=== PATIENT | female | born 1985 | race Caucasian/White ===

== ENCOUNTER 2016-05-07 10:05 | Emergency (ER) | payer MEDICAID ==
[~2016-05-07] VITALS: Ht 152.4 cm; Wt 90.9 kg
[~2016-05-07 10:05] MED LIST: ADDERALL10 MG PO; ALBUTEROL0.83 MG/ML IH; AMOXICILLIN875 MG PO; CELEXA 20MG20 MG/TAB PO; CIPRO 500MG TA500 MG PO; DEPO PROVER150 MG/ML IM; DEPO-ESTRADIO5 MG/ML IM; DEPO-PROVER150 MG/M1 IM; FLEXERIL 1010 MG/TAB PO; KLOR-CON M1010 MEQ; LEVAQUIN 750MG750 M1 PO; MASON NATURAL2000 IU PO; MULTI VITAMINS1 TAB PO; MULTIPLE VITAMI1 CAP PO; NAPROSYN500 MG PO; NORCO 325 MG-51 TAB PO; NORCO 325 MG-7.1 TAB PO; OCUFLOX OPHTH DR5 ML OU; OMNICEF 300MG300 MG PO; PERCOCET 325 MG1 TA2 PO; PHENERGAN 25 TA25 MG PO; PHENERMINE; PREDNISONE10 MG PO; PREDNISONE20 MG PO; PRENATAL1 TA7 PO; PROAIR INHALER; PROVENTIL0.09 MG/A1 IH; PYRIDIUM200 M1 PO; SEPTRA DS 8001 TAB PO; TESSALON PERLE200 MG PO; VITAMIN B COMPL1 T16 PO; ZITHROMAX Z PA250 MG PO; ZOFRAN 4MG T4 MG/TAB PO
[2016-05-07 10:10] VITALS: TEMP 98
[2016-05-07] MEDS ORDERED: ADDERALL XR 10M10 MG PO (10:15)
[2016-05-07 12:19] VITALS: BP 133/95; PULSE 74
[2016-05-07 13:31] LABS: CHLAMYDIA/TRACH by PCR Female Not Detected; NEISSERIA GON by PCR Female Not Detected
== END 2016-05-07 12:21 | disposition home or self-care (01) ==
LOC: COL.ER 10:05
PROVIDERS: Emergency Medicine
DX: O20.0 Threatened abortion (principal); Z3A.01 Less than 8 weeks gestation of pregnancy; Z91.410 Personal history of adult physical and sexual abuse

== ENCOUNTER 2016-05-30 16:31 | Emergency (ER) | payer MEDICAID ==
[~2016-05-30] VITALS: Ht 152.4 cm; Wt 95.5 kg
[~2016-05-30 16:31] MED LIST changes: +ADDERALL XR 10M10 MG PO
[2016-05-30 16:49] VITALS: BP 129/81; TEMP 99.3
[2016-05-30 17:39] LABS: INFLUENZA B NEGATIVE
[2016-05-30] MEDS ORDERED: PROAIR HFA0.09 MG/AC IH (17:46)
[2016-05-30 18:22] VITALS: PULSE 88
== END 2016-05-30 18:08 | disposition home or self-care (01) ==
LOC: COL.ER 16:31
PROVIDERS: Physician Assistant
DX: O99.511 Diseases of the respiratory system complicating pregnancy, first trimester (principal); J06.9 Acute upper respiratory infection, unspecified; J45.909 Unspecified asthma, uncomplicated; Z3A.09 9 weeks gestation of pregnancy

== ENCOUNTER 2016-07-09 11:10 | Emergency (ER) | payer MEDICAID ==
[~2016-07-09] VITALS: Ht 152.4 cm; Wt 97.7 kg
[~2016-07-09 11:10] MED LIST changes: +PROAIR HFA0.09 MG/AC IH
[2016-07-09 11:13] VITALS: BP 126/82; TEMP 98.2
[2016-07-09] MEDS ORDERED: ZOLOFT 50MG50 MG PO (11:17)
[2016-07-09] MEDS ORDERED: MULTI VITAMINS1 TAB PO (11:17)
[2016-07-09] MEDS ORDERED: NATURAL IRON65 MG PO (11:17)
[2016-07-09 12:01] LABS: BASO % 0.3 % (0.0-2.0); EOS # 0.1 (0.0-0.7); GRAN # 5.2 (1.4-6.5); GRAN % 67.5 % (42.2-75.2); LYMPH # 1.9 (1.2-3.4); LYMPH % 24.7 % (20.0-51.0); MEAN CELL VOLUME 91 fl (80.0-100.0); MEAN CORPUSCULAR HGB CONC 34 g/dl (33.0-37.0); MEAN PLATELET VOLUME 9.7 fl (7.4-10.4); MONO # 0.5 (0.1-0.6); MONO % 6.1 % (1.7-9.3); PLATELET COUNT 331 K/mm3 (130-400); RED BLOOD COUNT 3.82 M/mm3 (4.10-5.30); REDCELL DISTRIBUTION WIDTH-CV 12.9 % (11.5-14.5); WHITE BLOOD COUNT 7.7 K/mm3 (4.8-10.8)
[2016-07-09 12:04] LABS: HEMATOCRIT 34.7 % (37.0-47.0); HEMOGLOBIN 11.7 g/dl (12.5-16.0); MEAN CORPUSCULAR HEMOGLOBIN 31 pg (27.0-31.0)
[2016-07-09 12:13] LABS: PH 6 (5-8); SQUAMOUS EPITHELIAL 0-2 /hpf; URINE APPEARANCE Hazy; URINE BACTERIA None Seen /hpf; URINE BILIRUBIN Negative (NEGATIVE); URINE BLOOD Negative (NEGATIVE); URINE COLOR Yellow; URINE GLUCOSE Negative (NEGATIVE); URINE KETONE Negative (NEGATIVE); URINE UROBILINOGEN Negative (NEGATIVE); URINE WBC 0-2 /hpf
[2016-07-09 12:21] LABS: ADJUSTED CALCIUM 9.5 mg/dL (8.4-10.2); BILIRUBIN,TOTAL 0.6 mg/dL (0.0-1.0); CALCIUM 9.5 mg/dL (8.4-10.2); CREATININE, serum 0.44 mg/dL (0.52-1.25); POTASSIUM 3.5 mmol/L (3.4-5.0); TOTAL PROTEIN 7.3 gm/dL (6.4-8.2)
[2016-07-09 13:48] LABS: CHLAMYDIA/TRACH by PCR Female NOT DETECTED; NEISSERIA GON by PCR Female NOT DETECTED
[2016-07-09 14:47] VITALS: PULSE 74
== END 2016-07-09 14:47 | disposition home or self-care (01) ==
LOC: COL.ER 11:10
PROVIDERS: Nurse Practitioner
DX: O99.89 Other specified diseases and conditions complicating pregnancy, childbirth and the puerperium (principal); M54.5 Low back pain; R10.32 Left lower quadrant pain; Z3A.15 15 weeks gestation of pregnancy
CPT/HCPCS: J7030

== ENCOUNTER 2016-11-06 08:26 | Outpatient (CLI) | payer MEDICAID ==
[~2016-11-06] VITALS: Ht 152.4 cm; Wt 108.6 kg
[~2016-11-06 08:26] MED LIST changes: +NATURAL IRON65 MG PO; +ZOLOFT 50MG50 MG PO
[2016-11-06 08:40] VITALS: BP 146/78; PULSE 97; TEMP 98.5
[2016-11-06 09:30] VITALS: BP 146/78; PULSE 97; TEMP 98.5
[2016-11-06 10:30] VITALS: BP 120/91; PULSE 82
[2016-11-06 10:39] LABS: PH 7 (5-8); SQUAMOUS EPITHELIAL 0-2 /hpf; URINE APPEARANCE Clear; URINE BACTERIA None Seen /hpf; URINE BILIRUBIN Negative (NEGATIVE); URINE BLOOD Negative (NEGATIVE); URINE COLOR Yellow; URINE GLUCOSE Negative (NEGATIVE); URINE KETONE Negative (NEGATIVE); URINE RBC 0-2 /hpf; URINE UROBILINOGEN Negative (NEGATIVE); URINE WBC 0-2 /hpf
== END 2016-11-06 11:10 | disposition home or self-care (01) ==
LOC: LDRO 08:26 → LDR 08:35 → LDRO 11:10
PROVIDERS: Obstetrics & Gynecology
DX: O62.9 Abnormality of forces of labor, unspecified (principal); Z3A.31 31 weeks gestation of pregnancy
CPT/HCPCS: OP; J7120

== ENCOUNTER 2016-11-24 14:25 | Outpatient (CLI) | payer MEDICAID ==
[~2016-11-24] VITALS: Ht 152.4 cm; Wt 111.4 kg
[2016-11-24 14:28] VITALS: BP 130/76; PULSE 96; TEMP 97.9
[2016-11-24 15:25] VITALS: BP 141/79; PULSE 80
[2016-11-24 16:00] VITALS: BP 130/80; PULSE 80
[2016-11-24 16:40] VITALS: BP 130/80; PULSE 80
== END 2016-11-24 16:55 | disposition home or self-care (01) ==
LOC: LDRO 14:25 → LDR 14:30 → LDRO 16:55
DX: O36.8130 Decreased fetal movements, third trimester, not applicable or unspecified (principal); O26.893 Other specified pregnancy related conditions, third trimester; R10.9 Unspecified abdominal pain; Z3A.34 34 weeks gestation of pregnancy
CPT/HCPCS: OP; J7120

== ENCOUNTER 2016-12-12 20:27 | Outpatient (CLI) | payer MEDICAID ==
[~2016-12-12] VITALS: Ht 152.4 cm; Wt 110.9 kg
[2016-12-12 20:50] VITALS: BP 137/87; PULSE 88
[2016-12-12 21:45] VITALS: BP 134/85; PULSE 81
[2016-12-12 22:29] LABS: BASO % 0.2 % (0.0-2.0); EOS # 0.1 (0.0-0.7); EOS % 0.8 % (0-4.0); GRAN # 5.7 (1.4-6.5); GRAN % 67.1 % (42.2-75.2); MEAN CELL VOLUME 88 fl (80.0-100.0); MEAN CORPUSCULAR HGB CONC 34 g/dl (33.0-37.0); MEAN PLATELET VOLUME 9.9 fl (7.4-10.4); MONO # 0.7 (0.1-0.6); MONO % 8.2 % (1.7-9.3); PLATELET COUNT 252 K/mm3 (130-400); RED BLOOD COUNT 3.34 M/mm3 (4.10-5.30); REDCELL DISTRIBUTION WIDTH-CV 12.8 % (11.5-14.5); WHITE BLOOD COUNT 8.5 K/mm3 (4.8-10.8)
[2016-12-12 22:30] LABS: HEMATOCRIT 29.5 % (37.0-47.0); HEMOGLOBIN 10.1 g/dl (12.5-16.0); MEAN CORPUSCULAR HEMOGLOBIN 30 pg (27.0-31.0)
[2016-12-12 22:40] LABS: PH 6 (5-8); URINE APPEARANCE Hazy; URINE BACTERIA Occasional /hpf; URINE BILIRUBIN Negative (NEGATIVE); URINE BLOOD Negative (NEGATIVE); URINE COLOR Yellow; URINE GLUCOSE Negative (NEGATIVE); URINE KETONE Negative (NEGATIVE); URINE RBC 0-2 /hpf; URINE UROBILINOGEN Negative (NEGATIVE)
[2016-12-12 23:00] VITALS: BP 125/76; PULSE 79; TEMP 98.8
== END 2016-12-12 23:30 ==
LOC: LDRO 20:27
PROVIDERS: Obstetrics & Gynecology
DX: O26.893 Other specified pregnancy related conditions, third trimester (principal); R10.9 Unspecified abdominal pain; Z3A.36 36 weeks gestation of pregnancy

== ENCOUNTER 2016-12-15 17:06 | Outpatient (CLI) | payer MEDICAID ==
[2016-12-15 17:15] VITALS: BP 137/90; PULSE 94; TEMP 98.1
[2016-12-15 17:45] VITALS: BP 132/86; PULSE 94
[2016-12-15 17:59] LABS: MEAN CELL VOLUME 88 fl (80.0-100.0); MEAN CORPUSCULAR HGB CONC 34 g/dl (33.0-37.0); MEAN PLATELET VOLUME 10.1 fl (7.4-10.4); PLATELET COUNT 281 K/mm3 (130-400); RED BLOOD COUNT 3.62 M/mm3 (4.10-5.30); REDCELL DISTRIBUTION WIDTH-CV 12.9 % (11.5-14.5)
[2016-12-15 18:00] LABS: HEMATOCRIT 31.8 % (37.0-47.0); HEMOGLOBIN 10.9 g/dl (12.5-16.0); MEAN CORPUSCULAR HEMOGLOBIN 30 pg (27.0-31.0)
[2016-12-15 18:03] LABS: ADJUSTED CALCIUM 9.6 mg/dL (8.4-10.2); ALBUMIN 3.8 gm/dL (3.5-5.0); BILIRUBIN,TOTAL 0.3 mg/dL (0.0-1.0); CALCIUM 9.4 mg/dL (8.4-10.2); CREATININE, serum 0.6 mg/dL (0.52-1.25); POTASSIUM 4.1 mmol/L (3.4-5.0); TOTAL PROTEIN 7.1 gm/dL (6.4-8.2)
[2016-12-15 18:19] VITALS: BP 133/91; PULSE 90
== END 2016-12-15 18:25 | disposition home or self-care (01) ==
LOC: LDRO 17:06
PROVIDERS: Obstetrics & Gynecology
DX: O26.893 Other specified pregnancy related conditions, third trimester (principal); R42 Dizziness and giddiness; Z3A.37 37 weeks gestation of pregnancy

== ENCOUNTER 2016-12-19 10:55 | Outpatient (CLI) | payer MEDICAID ==
[~2016-12-19] VITALS: Ht 152.4 cm; Wt 110.9 kg
[2016-12-19 11:09] VITALS: BP 122/84; PULSE 105; TEMP 98.1
[2016-12-19] MEDS ORDERED: PRILOSEC 20MG20 MG PO (11:11)
[2016-12-19 11:30] VITALS: BP 123/91; PULSE 106
[2016-12-19 11:45] VITALS: BP 132/87; PULSE 90
[2016-12-19 11:47] LABS: BASO % 0.1 % (0.0-2.0); EOS # 0.1 (0.0-0.7); EOS % 0.8 % (0-4.0); GRAN # 5.9 (1.4-6.5); GRAN % 70.7 % (42.2-75.2); LYMPH # 1.6 (1.2-3.4); LYMPH % 18.5 % (20.0-51.0); MEAN CELL VOLUME 89 fl (80.0-100.0); MEAN CORPUSCULAR HGB CONC 34 g/dl (33.0-37.0); MEAN PLATELET VOLUME 10.2 fl (7.4-10.4); MONO # 0.8 (0.1-0.6); MONO % 9.2 % (1.7-9.3); PLATELET COUNT 290 K/mm3 (130-400); WHITE BLOOD COUNT 8.4 K/mm3 (4.8-10.8)
[2016-12-19 11:49] LABS: HEMATOCRIT 33.8 % (37.0-47.0); HEMOGLOBIN 11.4 g/dl (12.5-16.0); MEAN CORPUSCULAR HEMOGLOBIN 30 pg (27.0-31.0)
[2016-12-19 11:51] LABS: PH 6 (5-8); URINE APPEARANCE Hazy; URINE BACTERIA None Seen /hpf; URINE BILIRUBIN Negative (NEGATIVE); URINE BLOOD Negative (NEGATIVE); URINE COLOR Amber; URINE GLUCOSE Negative (NEGATIVE); URINE KETONE Negative (NEGATIVE); URINE UROBILINOGEN Negative (NEGATIVE)
[2016-12-19 11:54] LABS: ADJUSTED CALCIUM 9.4 mg/dL (8.4-10.2); ALBUMIN 3.9 gm/dL (3.5-5.0); BILIRUBIN,TOTAL 0.5 mg/dL (0.0-1.0); CALCIUM 9.3 mg/dL (8.4-10.2); CREATININE, serum 0.53 mg/dL (0.52-1.25); POTASSIUM 4.1 mmol/L (3.4-5.0); TOTAL PROTEIN 7.4 gm/dL (6.4-8.2)
[2016-12-19 12:00] VITALS: BP 134/97; PULSE 100
[2016-12-19 12:15] VITALS: BP 136/98; PULSE 100
[2016-12-19 12:40] VITALS: BP 138/87; PULSE 88
== END 2016-12-19 12:59 | disposition home or self-care (01) ==
LOC: LDRO 10:55 → LDR 11:00 → LDRO 12:59
PROVIDERS: Obstetrics & Gynecology
DX: O16.3 Unspecified maternal hypertension, third trimester (principal); Z3A.37 37 weeks gestation of pregnancy
CPT/HCPCS: OP

== ENCOUNTER 2016-12-23 18:05 | Outpatient (CLI) | payer MEDICAID ==
[~2016-12-23] VITALS: Ht 152.4 cm; Wt 112.7 kg
[2016-12-23] VITALS (8 sets, daily range): BP systolic 121–137; BP diastolic 73–91; PULSE 74–104
[~2016-12-23 18:05] MED LIST changes: +PRILOSEC 20MG20 MG PO
[2016-12-23] MEDS ORDERED: CALTRATE-600 W600 MG PO (19:24)
[2016-12-23 19:51] LABS: BASO % 0.3 % (0.0-2.0); EOS # 0.1 (0.0-0.7); EOS % 0.6 % (0-4.0); LYMPH # 1.9 (1.2-3.4); LYMPH % 19.4 % (20.0-51.0); MEAN CELL VOLUME 88 fl (80.0-100.0); MEAN CORPUSCULAR HGB CONC 34 g/dl (33.0-37.0); MEAN PLATELET VOLUME 10.3 fl (7.4-10.4); MONO # 0.7 (0.1-0.6); MONO % 6.7 % (1.7-9.3); PLATELET COUNT 294 K/mm3 (130-400); RED BLOOD COUNT 3.68 M/mm3 (4.10-5.30); WHITE BLOOD COUNT 9.7 K/mm3 (4.8-10.8)
[2016-12-23 19:52] LABS: HEMATOCRIT 32.5 % (37.0-47.0); MEAN CORPUSCULAR HEMOGLOBIN 30 pg (27.0-31.0)
[2016-12-23 19:55] LABS: SQUAMOUS EPITHELIAL 20-50 /hpf; URINE BACTERIA Many /hpf; URINE COLOR Yellow; URINE RBC 0-2 /hpf
[2016-12-23 19:56] LABS: ADJUSTED CALCIUM 9.8 mg/dL (8.4-10.2); ALBUMIN 3.8 gm/dL (3.5-5.0); BILIRUBIN,TOTAL 0.4 mg/dL (0.0-1.0); CALCIUM 9.6 mg/dL (8.4-10.2); CREATININE, serum 0.51 mg/dL (0.52-1.25); POTASSIUM 3.4 mmol/L (3.4-5.0); TOTAL PROTEIN 7.2 gm/dL (6.4-8.2)
[2016-12-23 19:56] LABS: PH 6 (5-8); URINE APPEARANCE Hazy; URINE BILIRUBIN Negative (NEGATIVE); URINE BLOOD Negative (NEGATIVE); URINE GLUCOSE Negative (NEGATIVE); URINE KETONE Negative (NEGATIVE); URINE UROBILINOGEN Negative (NEGATIVE)
== END 2016-12-23 22:20 | disposition home or self-care (01) ==
LOC: LDRO 18:05
PROVIDERS: Obstetrics & Gynecology
DX: O26.893 Other specified pregnancy related conditions, third trimester (principal); Z3A.38 38 weeks gestation of pregnancy
CPT/HCPCS: J2270; J2550; J7120

== ENCOUNTER 2016-12-27 06:38 | Inpatient (IN) | payer MEDICAID ==
[~2016-12-27] VITALS: Ht 152.4 cm; Wt 112.3 kg
[~2016-12-27 06:38] MED LIST changes: +CALTRATE-600 W600 MG PO
[2016-12-28] VITALS (65 sets, daily range): BP systolic 108–155; BP diastolic 64–101; PULSE 63–100; TEMP 97.8–98.6
[2016-12-28 08:06] LABS: BASO % 0.4 % (0.0-2.0); EOS # 0.1 (0.0-0.7); EOS % 0.9 % (0-4.0); GRAN # 6.1 (1.4-6.5); LYMPH # 1.7 (1.2-3.4); LYMPH % 20.3 % (20.0-51.0); MEAN CELL VOLUME 89 fl (80.0-100.0); MEAN CORPUSCULAR HGB CONC 33 g/dl (33.0-37.0); MEAN PLATELET VOLUME 10.3 fl (7.4-10.4); MONO # 0.6 (0.1-0.6); MONO % 6.6 % (1.7-9.3); PLATELET COUNT 293 K/mm3 (130-400); RED BLOOD COUNT 3.73 M/mm3 (4.10-5.30); WHITE BLOOD COUNT 8.5 K/mm3 (4.8-10.8)
[2016-12-28 08:07] LABS: HEMATOCRIT 33.2 % (37.0-47.0); HEMOGLOBIN 11.1 g/dl (12.5-16.0); MEAN CORPUSCULAR HEMOGLOBIN 30 pg (27.0-31.0)
[2016-12-29 00:30] VITALS: BP 134/75; PULSE 98
[2016-12-29 00:50] VITALS: BP 137/92; PULSE 111
[2016-12-29 07:00] VITALS: BP 108/61; PULSE 85; TEMP 98.4
[2016-12-29] MEDS ORDERED: PERCOCET 325 MG1 TA2 PO (08:15)
[2016-12-29 16:30] VITALS: BP 118/75; PULSE 78; TEMP 98.2
[2016-12-29 19:00] VITALS: BP 111/72; PULSE 86; TEMP 97.9
[2016-12-29 23:30] VITALS: BP 120/60; PULSE 73; TEMP 97.5
[2016-12-30 07:50] VITALS: BP 106/64; PULSE 75; TEMP 97.8
== END 2016-12-30 11:00 | disposition home or self-care (01) | DRG 774 ==
LOC: OB 06:38 → LDR 12-28 06:51 → OB 12-28 06:51
PROVIDERS: Obstetrics & Gynecology
PROC: 10E0XZZ Delivery of Products of Conception, External Approach (ICD-10-PCS; principal; 2016-12-28)
PROC: 3E033VJ Introduction of Other Hormone into Peripheral Vein, Percutaneous Approach (ICD-10-PCS; 2016-12-28)
DX: O10.92 Unspecified pre-existing hypertension complicating childbirth (principal); O99.824 Streptococcus B carrier state complicating childbirth; Z3A.39 39 weeks gestation of pregnancy; Z37.0 Single live birth
CPT/HCPCS: J1200; J2210; J2540; J2590; J7120

== ENCOUNTER 2017-02-07 13:51 | Emergency (ER) | payer MEDICAID ==
[~2017-02-07] VITALS: Ht 152.4 cm; Wt 107.5 kg
[2017-02-07 13:59] VITALS: BP 127/93; TEMP 98.6
[2017-02-07] MEDS ORDERED: AMOXICILLIN 8751 TAB PO (14:47)
[2017-02-07 14:55] VITALS: PULSE 73
== END 2017-02-07 14:55 | disposition home or self-care (01) ==
LOC: COL.ER 13:51
DX: H66.92 Otitis media, unspecified, left ear (principal)

== ENCOUNTER 2017-04-23 10:04 | Emergency (ER) | payer MEDICAID ==
[~2017-04-23] VITALS: Ht 152.4 cm; Wt 102.7 kg
[~2017-04-23 10:04] MED LIST changes: +AMOXICILLIN 8751 TAB PO
[2017-04-23 10:09] VITALS: BP 155/99; TEMP 98.4
[2017-04-23 11:19] LABS: BASO % 0.1 % (0.0-2.0); EOS # 0.2 (0.0-0.7); EOS % 2.3 % (0-4.0); HEMATOCRIT 38.1 % (37.0-47.0); HEMOGLOBIN 12.4 g/dl (12.5-16.0); LYMPH # 2.4 (1.2-3.4); LYMPH % 33.5 % (20.0-51.0); MEAN CELL VOLUME 92 fl (80.0-100.0); MEAN CORPUSCULAR HEMOGLOBIN 30 pg (27.0-31.0); MEAN CORPUSCULAR HGB CONC 33 g/dl (33.0-37.0); MEAN PLATELET VOLUME 9.8 fl (7.4-10.4); MONO # 0.6 (0.1-0.6); MONO % 8.5 % (1.7-9.3); PLATELET COUNT 369 K/mm3 (130-400); RED BLOOD COUNT 4.13 M/mm3 (4.10-5.30); WHITE BLOOD COUNT 7.3 K/mm3 (4.8-10.8)
[2017-04-23 11:29] LABS: ALBUMIN 4.2 gm/dL (3.5-5.0); BILIRUBIN,TOTAL 0.3 mg/dL (0.0-1.0); C-REACTIVE PROTEIN 0.7 mg/dL (0.0-0.9); CALCIUM 9.2 mg/dL (8.4-10.2); CREATININE, serum 0.6 mg/dL (0.52-1.25); POTASSIUM 4.1 mmol/L (3.4-5.0); TOTAL PROTEIN 7.3 gm/dL (6.4-8.2)
[2017-04-23] MEDS ORDERED: PERCOCET 325 MG1 TA2 PO (12:48)
[2017-04-23] MEDS ORDERED: DOXYCYCLINE 10100 MG PO (12:48)
[2017-04-23] MEDS ORDERED: CEPHALEXIN500 M1 PO (12:48)
[2017-04-23 13:24] VITALS: PULSE 63
== END 2017-04-23 13:32 | disposition home or self-care (01) ==
LOC: COL.ER 10:04
PROVIDERS: Emergency Medicine
DX: L03.311 Cellulitis of abdominal wall (principal); Z98.51 Tubal ligation status
CPT/HCPCS: J1170; J2405; J7030; Q9967

== ENCOUNTER 2017-05-26 09:06 | Emergency (ER) | payer MEDICAID ==
[~2017-05-26] VITALS: Ht 152.4 cm; Wt 106.4 kg
[~2017-05-26 09:06] MED LIST changes: +CEPHALEXIN500 M1 PO; +DOXYCYCLINE 10100 MG PO
[2017-05-26 09:09] VITALS: BP 145/82; TEMP 98
[2017-05-26] MEDS ORDERED: CRUTCHES MC (11:20)
[2017-05-26 11:50] VITALS: PULSE 99
== END 2017-05-26 11:55 | disposition home or self-care (01) ==
LOC: COL.ER 09:06
DX: S16.1XXA Strain of muscle, fascia and tendon at neck level, initial encounter (principal); I10 Essential (primary) hypertension; J45.909 Unspecified asthma, uncomplicated; F90.9 Attention-deficit hyperactivity disorder, unspecified type; F17.210 Nicotine dependence, cigarettes, uncomplicated; W00.0XXA Fall on same level due to ice and snow, initial encounter
CPT/HCPCS: J1170; L1830

== ENCOUNTER 2018-03-05 17:34 | Emergency (ER) | payer MEDICAID ==
[~2018-03-05] VITALS: Ht 154.9 cm; Wt 90.9 kg
[~2018-03-05 17:34] MED LIST changes: +CRUTCHES MC
[2018-03-05 18:40] LABS: BASO % 0.4 % (0.0-2.0); EOS # 0.1 (0.0-0.7); EOS % 0.6 % (0-4.0); GRAN # 5.1 (1.4-6.5); GRAN % 61.3 % (42.2-75.2); HEMOGLOBIN 12.3 g/dl (12.5-16.0); LYMPH # 2.5 (1.2-3.4); LYMPH % 29.9 % (20.0-51.0); MEAN CELL VOLUME 91 fl (80.0-100.0); MEAN CORPUSCULAR HEMOGLOBIN 32 pg (27.0-31.0); MEAN CORPUSCULAR HGB CONC 35 g/dl (33.0-37.0); MEAN PLATELET VOLUME 9.6 fl (7.4-10.4); MONO # 0.6 (0.1-0.6); MONO % 7.7 % (1.7-9.3); PLATELET COUNT 370 K/mm3 (130-400); RED BLOOD COUNT 3.91 M/mm3 (4.10-5.30); REDCELL DISTRIBUTION WIDTH-CV 12.6 % (11.5-14.5)
[2018-03-05 18:49] LABS: HEMATOCRIT 35.7 % (37.0-47.0)
[2018-03-05 19:01] LABS: ALANINE AMINOTRANSFERASE 30 U/L (9-52); ALBUMIN 4.4 gm/dL (3.5-5.0); ALKALINE PHOSPHATASE 60 U/L (50-136); ANION GAP 8 mmol/L (7-16); AST,SGOT 30 U/L (15-37); BILIRUBIN,TOTAL 0.5 mg/dL (0.0-1.0); BLOOD UREA NITROGEN 15 mg/dL (7-17); CALCIUM 9.2 mg/dL (8.4-10.2); CARBON DIOXIDE 22 mmol/L (22-30); CHLORIDE 110 mmol/L (98-107); GLUCOSE 86 mg/dL (74-106); POTASSIUM 3.6 mmol/L (3.4-5.0); SODIUM 139 mmol/L (137-145); TOTAL PROTEIN 7.7 gm/dL (6.4-8.2)
[2018-03-05 19:05] LABS: ACETAMINOPHEN < 10 ug/mL (10-30); ALCOHOL(ethanol),MEDICAL < 10 mg/dL; SALICYLATE < 1.0 mg/dL
[2018-03-05] MEDS ORDERED: SUBOXONE 2 MG-01 TAB SL (20:52)
[2018-03-05] MEDS ORDERED: ADDERALL5 MG PO (20:52)
[2018-03-05] MEDS ORDERED: KLONOPIN 0.5MG0.5 MG PO (20:52)
[2018-03-06 00:38] LABS: COLLECTION METHOD CLEAN CATCH
[2018-03-06 00:55] LABS: TRICYCLIC ANTIDEPRESS URINE NEGATIVE
[2018-03-06 01:01] LABS: MUCOUS Present /lpf; PH 6 (5-8); URINE APPEARANCE Turbid; URINE BACTERIA Rare /hpf; URINE BILIRUBIN Negative (NEGATIVE); URINE BLOOD 3+ (NEGATIVE); URINE CALCIUM OXALATE CRYSTAL Present /hpf; URINE COLOR Amber; URINE GLUCOSE Negative (NEGATIVE); URINE KETONE Trace (NEGATIVE); URINE LEUKOCYTE ESTERASE 2+ (NEGATIVE); URINE NITRATE Negative (NEGATIVE); URINE PROTEIN(semi-quant) 1+ (NEGATIVE); URINE UROBILINOGEN Negative (NEGATIVE)
[2018-03-06] MEDS ORDERED: OMNICEF 300MG300 MG PO (03:30)
[2018-03-06 03:45] VITALS: TEMP 97.9
[2018-03-06 12:25] VITALS: BP 111/60; PULSE 88
== END 2018-03-06 12:25 ==
LOC: COL.ER 17:34
PROVIDERS: Physician Assistant
DX: R45.851 Suicidal ideations (principal); N39.0 Urinary tract infection, site not specified; F43.10 Post-traumatic stress disorder, unspecified
CPT/HCPCS: J0696

== ENCOUNTER 2019-11-25 13:18 | Emergency (ER) | payer MEDICAID ==
[~2019-11-25] VITALS: Ht 154.9 cm; Wt 80.0 kg
[~2019-11-25 13:18] MED LIST changes: +ADDERALL5 MG PO; +KLONOPIN 0.5MG0.5 MG PO; +SUBOXONE 2 MG-01 TAB SL
[2019-11-25 13:24] VITALS: BP 130/93; TEMP 97.4
[2019-11-25 14:23] LABS: STREP SCREEN NEGATIVE
[2019-11-25 14:42] LABS: MONOSCREEN NEGATIVE
[2019-11-25] MEDS ORDERED: CLEOCIN HCL300 MG PO (14:48)
[2019-11-25] MEDS ORDERED: PREDNISONE20 MG PO (14:48)
[2019-11-25] MEDS ORDERED: MAGIC MOUTH PO (14:53)
[2019-11-25 14:59] VITALS: PULSE 88
== END 2019-11-25 15:00 | disposition home or self-care (01) ==
LOC: COL.ER 13:18
PROVIDERS: Physician Assistant
DX: J03.90 Acute tonsillitis, unspecified (principal); F90.9 Attention-deficit hyperactivity disorder, unspecified type; F17.210 Nicotine dependence, cigarettes, uncomplicated

== ENCOUNTER → 2020-02-06 | Outpatient (CLI) | payer MEDICAID ==
[~2020-02-06] MED LIST changes: +CLEOCIN HCL300 MG PO; +MAGIC MOUTH PO
== END ==
LOC: ZCOL.LAB 15:49
DX: R52 Pain, unspecified (principal); Z20.828 Contact with and (suspected) exposure to other viral communicable diseases

== ENCOUNTER 2020-05-17 13:03 | Emergency (ER) | payer MEDICAID ==
[~2020-05-17] VITALS: Ht 152.4 cm; Wt 80.0 kg
[2020-05-17 13:20] VITALS: TEMP 98.5
[2020-05-17 14:35] LABS: MONOSCREEN NEGATIVE; STREP SCREEN NEGATIVE
[2020-05-17 15:27] VITALS: BP 166/99; PULSE 87
== END 2020-05-17 15:27 | disposition home or self-care (01) ==
LOC: COL.ER 13:03
PROVIDERS: Physician Assistant
DX: B34.9 Viral infection, unspecified (principal); J45.909 Unspecified asthma, uncomplicated; F90.9 Attention-deficit hyperactivity disorder, unspecified type; F31.9 Bipolar disorder, unspecified; Z87.891 Personal history of nicotine dependence; Z20.822 Contact with and (suspected) exposure to COVID-19; Z88.6 Allergy status to analgesic agent; Z79.52 Long term (current) use of systemic steroids

== ENCOUNTER 2020-06-06 19:33 | Emergency (ER) | payer MEDICAID ==
[~2020-06-06] VITALS: Ht 152.4 cm; Wt 81.4 kg
[2020-06-06 19:37] VITALS: BP 152/110; TEMP 98.2
[2020-06-06 20:45] VITALS: PULSE 87
== END 2020-06-06 20:43 | disposition home or self-care (01) ==
LOC: COL.ER 19:33
DX: S60.022A Contusion of left index finger without damage to nail, initial encounter (principal); F90.9 Attention-deficit hyperactivity disorder, unspecified type; Z87.891 Personal history of nicotine dependence; Z88.6 Allergy status to analgesic agent; Z91.040 Latex allergy status; W31.2XXA Contact with powered woodworking and forming machines, initial encounter; Y92.009 Unspecified place in unspecified non-institutional (private) residence as the place of occurrence of the external cause; Y99.0 Civilian activity done for income or pay

== ENCOUNTER 2020-07-03 16:52 | Emergency (ER) | payer MEDICAID ==
[~2020-07-03] VITALS: Ht 152.4 cm; Wt 80.0 kg
[2020-07-03 17:17] VITALS: TEMP 97.6
[2020-07-03 17:57] LABS: BASO % 0.4 % (0.0-2.0); EOS # 0.2 (0.0-0.7); GRAN # 4.1 (1.4-6.5); GRAN % 50.8 % (42.2-75.2); HEMATOCRIT 38.7 % (37.0-47.0); HEMOGLOBIN 13.1 g/dl (12.5-16.0); LYMPH # 3.1 (1.2-3.4); LYMPH % 38.5 % (20.0-51.0); MEAN CELL VOLUME 93 fl (80.0-100.0); MEAN CORPUSCULAR HEMOGLOBIN 31 pg (27.0-31.0); MEAN CORPUSCULAR HGB CONC 34 g/dl (33.0-37.0); MEAN PLATELET VOLUME 9.9 fl (7.4-10.4); MONO # 0.7 (0.1-0.6); MONO % 8.1 % (1.7-9.3); PLATELET COUNT 366 K/mm3 (130-400); RED BLOOD COUNT 4.18 M/mm3 (4.10-5.30); REDCELL DISTRIBUTION WIDTH-CV 12.4 % (11.5-14.5)
[2020-07-03 18:02] LABS: COLLECTION METHOD CLEAN CATCH
[2020-07-03 18:07] LABS: ALBUMIN 4.4 gm/dL (3.5-5.0); BILIRUBIN,TOTAL 0.2 mg/dL (0.0-1.0); CALCIUM 9.3 mg/dL (8.4-10.2); CREATININE, serum 0.68 (0.52-1.25); POTASSIUM 4.2 mmol/L (3.4-5.0); TOTAL PROTEIN 7.8 gm/dL (6.4-8.2)
[2020-07-03 18:07] LABS: PH 5 (5-8); URINE APPEARANCE Hazy; URINE BACTERIA Rare /hpf; URINE BILIRUBIN Negative (NEGATIVE); URINE BLOOD Negative (NEGATIVE); URINE COLOR Yellow; URINE GLUCOSE Negative (NEGATIVE); URINE KETONE Negative (NEGATIVE); URINE LEUKOCYTE ESTERASE Trace (NEGATIVE); URINE NITRATE Negative (NEGATIVE); URINE PROTEIN(semi-quant) Negative (NEGATIVE); URINE UROBILINOGEN Negative (NEGATIVE)
[2020-07-03 18:21] LABS: TRICYCLIC ANTIDEPRESS URINE NEGATIVE
[2020-07-03 21:08] VITALS: BP 128/70; PULSE 88
== END 2020-07-03 21:08 | disposition home or self-care (01) ==
LOC: COL.ER 16:52
PROVIDERS: Physician Assistant
DX: F31.9 Bipolar disorder, unspecified (principal); R25.1 Tremor, unspecified; R51.9 Headache, unspecified; F41.9 Anxiety disorder, unspecified; F90.9 Attention-deficit hyperactivity disorder, unspecified type; Z88.6 Allergy status to analgesic agent; Z79.52 Long term (current) use of systemic steroids
CPT/HCPCS: J2060

== ENCOUNTER 2020-07-28 08:17 | Emergency (ER) | payer MEDICAID ==
[~2020-07-28] VITALS: Ht 152.4 cm; Wt 80.0 kg
[2020-07-28 08:21] VITALS: BP 148/108; PULSE 98; TEMP 98.4
[2020-07-28 09:21] LABS: COLLECTION METHOD CLEAN CATCH
[2020-07-28 09:23] LABS: BASO % 0.5 % (0.0-2.0); EOS # 0.1 (0.0-0.7); EOS % 1.5 % (0-4.0); GRAN # 3.7 (1.4-6.5); GRAN % 61.7 % (42.2-75.2); HEMATOCRIT 37.2 % (37.0-47.0); HEMOGLOBIN 12.5 g/dl (12.5-16.0); LYMPH # 1.7 (1.2-3.4); LYMPH % 28.3 % (20.0-51.0); MEAN CELL VOLUME 92 fl (80.0-100.0); MEAN CORPUSCULAR HEMOGLOBIN 31 pg (27.0-31.0); MEAN CORPUSCULAR HGB CONC 34 g/dl (33.0-37.0); MEAN PLATELET VOLUME 9.8 fl (7.4-10.4); MONO # 0.5 (0.1-0.6); MONO % 7.8 % (1.7-9.3); PLATELET COUNT 366 K/mm3 (130-400); RED BLOOD COUNT 4.03 M/mm3 (4.10-5.30); REDCELL DISTRIBUTION WIDTH-CV 11.9 % (11.5-14.5)
[2020-07-28 09:26] LABS: PH 6 (5-8); URINE APPEARANCE Hazy; URINE BACTERIA Rare /hpf; URINE BILIRUBIN Negative (NEGATIVE); URINE BLOOD Negative (NEGATIVE); URINE COLOR Yellow; URINE GLUCOSE Negative (NEGATIVE); URINE KETONE Negative (NEGATIVE); URINE LEUKOCYTE ESTERASE Negative (NEGATIVE); URINE NITRATE Negative (NEGATIVE); URINE PROTEIN(semi-quant) Negative (NEGATIVE); URINE UROBILINOGEN Negative (NEGATIVE)
[2020-07-28 09:34] LABS: ALBUMIN 4.3 gm/dL (3.5-5.0); BILIRUBIN,TOTAL 0.3 mg/dL (0.0-1.0); CALCIUM 9.6 mg/dL (8.4-10.2); CREATININE, serum 0.59 (0.52-1.25); POTASSIUM 4.4 mmol/L (3.4-5.0); TOTAL PROTEIN 7.9 gm/dL (6.4-8.2)
== END 2020-07-28 09:32 | disposition left against medical advice (07) ==
LOC: COL.ER 08:17
PROVIDERS: Emergency Medicine
DX: S09.90XA Unspecified injury of head, initial encounter (principal); F31.9 Bipolar disorder, unspecified; M25.511 Pain in right shoulder; Z88.6 Allergy status to analgesic agent; Z91.040 Latex allergy status; W10.8XXA Fall (on) (from) other stairs and steps, initial encounter